=== PATIENT | female | born 2000 | race Caucasian/White ===

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

== ENCOUNTER 2018-11-16 15:03 | Emergency (ER) | payer MEDICAID, SELFPAY ==
[2018-11-16] VITALS (7 sets, daily range): BP systolic 122; BP diastolic 71–77; PULSE 78–105; RESP 12–18; TEMP 36.4; O2SAT 99; BMI 21.3
--- NOTE | 2018-11-16 15:46 | ED.DCSUM_ITS ---
History of Present Illness <Chris Cruz - Last Filed: 11/16/18 16:13> Informant: Patient, Salesperson [employer] Onset: Month(s) Context: Gradual Onset Conflict: Family, Work, Financial Timing: Continuous Current Severity: Severe Maximum Severity: Severe Worsened by: Situational factors Relieved by: Nothing Associated Symptoms: Depressed, Change in Eating, Change in sleeping, Decreased Interest, Hopelessness, Suicidal Thoughts Specific plan (suicidal thought): No specific plan is noted Narrative: 18-year-old female brought in by police for suicidal ideation. Patient currently lives with her boyfriend and their 2 children in her boyfriend's grandma's basement. She states that they are living there currently because they were evicted from their house a few months ago. Patient has been battling depression since high school but it has gotten worse since she delivered her last child about 10 months ago. She has been having thoughts of suicide. She actually sent a text message to her friend that stated that she was going to kill herself and she did not feel that she was able to care for her children any longer. This was actually done several weeks ago. The patient states that she had been having these thoughts prior to this but had not told anyone. Her boyfriend's grandma actually found out and called the police today. The patient actually through boyfriend grandma had appointment scheduled with counseling tomorrow but what prompted the grandmother called the police when she told her this morning she was going to take the kids to [place] and actually not go to the appointment and leave state. Patient does admit to doing this. She does not have a plan of suicide. She denies any drug or alcohol use. She has not had any hallucinations or delusions or paranoia. She has never been on medications for depression. When she was in high school she did see a counselor. She states what really made her depressed was after she got in high school her family threw out of the home and that is why she moved here with her boyfriend and has been living here since that time. She has not heard her children and denies having stated to anyone that she was going to hurt them. Prior similar symptoms: No Recent Illness/Hospitalization: No <Jonathan Wilson - Last Filed: 11/16/18 17:58> Chief Complaint: Suicidal Past Medical History <Cruz,Chris - Last Filed: 11/16/18 16:13> Prior records reviewed: Yes Past Medical History: None Surgical History: no surgical history Smoking Status: Current every day smoker <Jonathan Wilson - Last Filed: 11/16/18 17:58> - Allergies and Home Meds Allergies/Adverse Reactions: Allergies No Known Allergies Allergy (Verified 11/16/18 15:05) Primary Care Physician: Care Physician,No Primary [Primary Care Provider] - Review of Systems All systems negative except as indicated Psych: Reports: Depression, Suicidal thoughts, Suicidal ideations <Jonathan Wilson - Last Filed: 11/16/18 17:58> Physical Exam Vital Signs/Narrative: Vital Signs Temp Pulse Resp BP Pulse Ox 11/16/18 15:06 97.6 F L 105 H 16 122/71 H 99 <Chris Cruz - Last Filed: 11/16/18 16:13> Vital Signs/Narrative: Vital Signs Temp Pulse Resp BP Pulse Ox 11/16/18 15:06 97.6 F L 105 H 16 122/71 H 99 Inital Vital Signs reviewed: Yes General: Well nourished, Well developed Head: Normocephalic, Atraumatic Eyes: Perrl, EOMI ENT: Moist mucous membranes Neck: Supple, Nontender, No lymphadenopathy Cardiovascular: Regular rate, Regular rhythm, No murmurs Respiratory: No distress, CTA bilaterally, Chest nontender Abdomen: Soft, Nontender, Nondistended, Normal bowel sounds, No masses Back: Nontender, Normal Inspection Extremities: Nontender, No Edema. Negative for: Healed prior injuries Skin: Normal color, No rash Neurological: Alert, Oriented x3 Psych: Normal Speech Pattern, Logical sequential goal directed thoughts, Depressed, Suicidal thoughts <Jonathan Wilson - Last Filed: 11/16/18 17:58> Diagnostic/Tx/Re-eval 18-year-old female depressed and suicidal. Also has 2 young children at home and her significant other. They are living with her significant other's parents. She has no known psychiatric diagnosis. She denies any attempt at this time. Female no acute distress. Vital signs are stable afebrile. HEENT exam unremarkable. She has blue dyed hair. Lungs clear to auscultation bilaterally. Heart regular rhythm no murmur. Abdomen soft nontender. She is moving all 4 extremities. Currently there are no wounds. Neurologically she is awake and alert. Patient will undergo ED mental health evaluation labs. Crisis evaluation. Impression: Acute depression Suicidal ideation <Chris Cruz - Last Filed: 11/16/18 16:13> Patient's labs are unremarkable but she does have evidence of a positive marijuana test. Patient is suicidal. At this time she is awaiting mental health evaluation in the emergency department. Further disposition will be pending that evaluation. <Jonathan Wilson - Last Filed: 11/16/18 17:58> ED Disposition <Chris Cruz - Last Filed: 11/16/18 16:13> <Jonathan Wilson - Last Filed: 11/16/18 17:58> - Plan for ED Patient: Diagnosis: Suicidal ideation Instructions: Depression Referrals: Care Physician,No Primary [Primary Care Provider] -
--- NOTE | 2018-11-16 15:50 | ED.RN ---
ICU SPECIALIST DEISY CALLED BACK TO DEPARTMENT AFTER PT DENIES BEING SUICIDAL OR INTENDING TO HARM CHILDREN.ONCE OFFICER ARRIVES PT ADMITS TO MAKING COMMENTS ABOUT WANTING TO END HER LIFE AND TO KILL BOTH HER CHILDREN. PT ADMITTED HER PLAN WAS TO TAKE CHILDREN AND SKIP STATE ON SATURDAY AND HEAD TO [place]. OFFICER CALLED [facility]. [facility] ON SCENE. CURRENT PLAN TO REMOVE CHILDREN FROM HOME AND PLACE IN SAFE ENVIRONMENT. THIS RN, OFFICER AND PHYSICIAN HAD DISCUSSION WITH PT REGARDING FINDINGS. PT AWARE SHE IS PINK SLIPPED AND UNABLE TO LEAVE DEPARTMENT
[2018-11-16 16:04] LABS: Amphetamine Urine VISTA NEGATIVE (<1000 ng/mL); Barbiturate Urine VISTA NEGATIVE (< 200 ng/mL); Benzodiazepine Urine VISTA NEGATIVE (< 200 ng/mL); Cocaine Urine VISTA NEGATIVE (< 300 ng/mL); Ecstacy Urine VISTA NEGATIVE (< 500 ng/mL); Methadone Urine VISTA NEGATIVE (< 300 ng/mL); PCP Urine VISTA NEGATIVE (< 25 ng/mL); THC Urine VISTA POSITIVE (< 50 ng/mL); Vista UDS pH Range 6
[2018-11-16 16:09] LABS: Absolute Lymphocyte Count 1.67 X10^3/ul (0.83-4.51); Absolute Neutrophil Count 4.7 X10^3/uL (2.0-7.7); Basophil# 0.01 X10^3/uL; Basophil% 0.1 % (0-1); Eosinophil# 0.35 X10^3/uL; Eosinophils% 4.8 % (0-5); Hematocrit 44.2 % (37-47); Hemoglobin 15.3 g/dl (12.0-15.0); Lymphocyte # 1.67 X10^3/ul (4.0); Mean Corp Hgb Conc 34.6 g/gl (32-36); Mean Corpuscular Hgb 29.7 pg (27.0-32.0); Mean Corpuscular Volume 85.8 fL (81-99); Mean Platelet Vol. 9.8 fl (6.2-12.0); Monocyte# 0.53 X10^3/uL; Monocyte% 7.3 % (0-10); Neutrophil # 4.68 X10^3/uL (2.7-7.7); Neutrophil % 64.5 % (47-70); Platelet Count 259 K/mm3 (150-450); RBC Distribution Width CV 13.3 % (11.6-14.6); RBC Distribution Width SD 41.2 fl (35.1-43.9); Red Blood Count 5.15 M/mm3 (4.2-5.4); White Blood Count 7.3 K/mm3 (4.4-11.0)
[2018-11-16 16:10] LABS: POSITIVE COUNT NO; POSITIVE DIFFERENTIAL NO; POSITIVE MORPHOLOGY NO
[2018-11-16 16:17] LABS: Anion Gap 5 (5-15); BUN 21 mg/dL (7-18); BUN/Creat Ratio 25.5 RATIO (10-20); Chloride 106 mmol/L (98-107); Creatinine, Serum 0.82 mg/dL (0.55-1.02); EST Glomerular Filtration Rate 94 mL/min (>60); Est Glom Filt Rate - Afr Amer 113 mL/min (>60); Estimated Creatinine Clearance 98.48 ml/min; Glucose 101 mg/dL (74-106); Potassium 4.3 mmol/L (3.5-5.1); Sodium Level 137 mmol/L (136-145)
[2018-11-16 16:47] LABS: Internal QC Validated? YES +Cl - CLEAR BKGD; Pregnancy, Serum, hCG Quali. NEGATIVE Negative
[2018-11-16 16:48] LABS: Alcohol, Blood (Medical)-Serum < 3.0 mg/dL
--- NOTE | 2018-11-16 17:19 | ED.RN ---
PT MEAL ORDERED. PT MADE AWARE THAT SHE IS PINK SLIPPED AND ALSO THAT CSB AT HER HOME AND PLAN TO PLACE CHILDREN IN A PROTECTIVE ENVIRONMENT. UNSURE IF WITH FAMILY OR OTHERS AT THIS TIME. PT REMINDED WHEN INFO IS FOUND OUT I WILL SHARE WITH HER
--- NOTE | 2018-11-16 18:34 | ED.RN ---
CRISIS ON SITE, REPORT GIVEN FOR THEIR EVALUATION.
--- NOTE | 2018-11-16 19:43 | ED.RN ---
PT REFERRED TO BECCA VELASQUEZ
[2018-11-17] VITALS (8 sets, daily range): BP systolic 90–109; BP diastolic 54–75; PULSE 64–72; RESP 14–16; O2SAT 97–100
== END 2018-11-17 07:00 ==
PROVIDERS: Emergency Provider Physician Assistant Medical
DX: F32.9 Major depressive disorder, single episode, unspecified (principal); R45.851 Suicidal ideations; F17.200 Nicotine dependence, unspecified, uncomplicated
CPT/HCPCS: 80048; 80307; 80320; 84703; 85025; 99284; G0480